=== PATIENT | female | born 1985 | race Caucasian/White ===

== ENCOUNTER 2017-10-24 10:23 | Inpatient (IN) | payer OTHER ==
[~2017-10-24] VITALS: Ht 154.9 cm; Wt 104.3 kg
--- NOTE | 2017-10-24 10:37 | NUR ---
PT AMBULATES TO BED 9
[2017-10-24 10:44] VITALS: BP 116/80
--- NOTE | 2017-10-24 10:51 | NUR ---
PATIENT PRESENTS TO ED WITH c/o umbilical region sharp pain x 2 wks---adds hesitancy, urgency denies bright red blood or black stools ---seen in our er same complaint 10/15/2017 dx constipation pt states she has been having regular bowel movements with NO straining ambulatory with slow guarded gait hx---denies rx---none; DENIES N/V/D; SKIN IS PINK/WARM/DRY; AAOX4 WITH EVEN AND STEADY GAIT; LUNGS CLEAR BL; HR EVEN AND REGULAR; PT DENIES ANY FEVER, CP, SOB, OR COUGH AT THIS TIME; PATIENT STATES PAIN OF 5/10 AT THIS TIME; VSS; PATIENT POSITIONED FOR COMFORT; HOB ELEVATED; BEDRAILS UP X2; BED DOWN. ER MD MADE AWARE OF PT STATUS.
[2017-10-24] MEDS ORDERED: KETOROLAC 30 MG/ML VIAL IVP ONE (13:00)
[2017-10-24] MEDS ORDERED: NACL 0.9% 1,000 ML IV SCH (13:00)
--- NOTE | 2017-10-24 13:28 | NUR ---
medicated as written for pain control---awaits further eval will continue to observe for pain control
--- NOTE | 2017-10-24 13:34 | NUR ---
blood collected at iv start
[2017-10-24 13:45] LABS: EOSINOPHILS # (AUTO) 0.1 K/uL (0-0.4); EOSINOPHILS % (AUTO) 0.4 % (0.0-4.0); HEMOGLOBIN 11.6 g/dL (12.0-16.0)
--- NOTE | 2017-10-24 13:45 | NUR ---
pt to ct via wheelchair
[2017-10-24 13:48] LABS: APPEARANCE,URINE CLOUDY (CLEAR); BILIRUBIN,URINE NEGATIVE (NEGATIVE); BLOOD, URINE 2+ (NEGATIVE); COLOR,URINE YELLOW (YELLOW); LEUKOCYTE ESTERASE ,URINE 2+ (NEGATIVE); NITRITE, URINE NEGATIVE (NEGATIVE); PH,URINE 5.5 (5.0-9.0); UGLUCOSE NEGATIVE (NEGATIVE)
[2017-10-24 13:49] LABS: BASOPHILS # (AUTO) 0.2 K/uL (0.00-0.22); BASOPHILS % (AUTO) 1.1 % (0.0-2.0); HEMATOCRIT 36.4 % (36-48); LYMPHOCYTES # (AUTO) 3.4 K/uL (2.5-16.5); MEAN CORPUSCULAR HEMOGLOBIN 25 pg (27-31); MEAN CORPUSCULAR HGB CONC 32 g/dL (33-37); MEAN CORPUSCULAR VOLUME 79.3 fL (80-94); MONOCYTES # (AUTO) 0.5 K/uL (0.8-1.0); MONOCYTES % (AUTO) 3.1 % (1.7-9.3); NEUTROPHILS # (AUTO) 12.5 K/uL (1.8-7.7); PLATELET COUNT (AUTO) 394 K/uL (140-450); RED BLOOD CELL COUNT(AUTO) 4.59 MIL/uL (4.20-5.40); RED CELL DISTRIBUTION WIDTH 14.8 % (11.6-13.7); WHITE BLOOD COUNT (AUTO) 16.6 K/uL (4.8-10.8)
[2017-10-24 13:54] LABS: ANION GAP 11.6 (8-16); CARBON DIOXIDE 26.3 mmol/L (21-32); CREATININE 0.7 mg/dL (0.6-1.3); POTASSIUM 3.9 mmol/L (3.5-5.1)
[2017-10-24 13:55] LABS: LYMPHOCYTES % (AUTO) 20.2 % (20.5-51.1); NEUTROPHILS % (AUTO) 75.2 % (42.2-75.2)
[2017-10-24 13:59] LABS: ALBUMIN 2.9 g/dL (3.4-5.0); TOTAL BILIRUBIN 0.5 mg/dL (0.0-1.0)
[2017-10-24 14:06] LABS: RBC,URINE 3-10 (FEW) /HPF (0-5)
[2017-10-24 14:07] LABS: URINE AMORPHOUS URATE 1+ /HPF (None Seen)
[2017-10-24] MEDS ORDERED: LEVOFLOXACIN 750 MG/D5W PREMIX 150 ML IV ONE (15:50)
[2017-10-24] MEDS ORDERED: NACL 0.9% 1,000 ML IV ONE (15:50)
[2017-10-24] MEDS ORDERED: metroNIDAZOLE 500 MG/NS PREMIX 100 ML IV ONE (15:50)
[2017-10-24] MEDS ORDERED: ONDANSETRON 4 MG/2 ML VIAL IVP PRN (16:05)
[2017-10-24] MEDS ORDERED: ACETAMINOPHEN 325 MG TAB PO PRN (16:05)
[2017-10-24] MEDS: NACL 0.9% 1,000 ML IV SCH (16:05)
--- NOTE | 2017-10-24 16:45 | NUR ---
Patient admitted to care of DR REEVES. Admited to M/S to room 119A. Belongings list completed. Report to SHANNAN ZAZUETA. Addendum: 10/24/17 at 1653 by MEDARO FLAGYL GIVEN TO TAD GRANADOS TO BE GIVEN AFTER FLAGRADHA
--- NOTE | 2017-10-24 17:00 | NUR ---
PATIENT ADMITTED TO THE UNIT FROM ER. PATIENT AWAKE, ALERT, ORIENTED AND AMBULATORY. PATIENT ON ROOM AIR. NO SOB, NO S/S OF DISTRESS. PATIENT REPORTS OF 5/10 AND PAIN. IV LINE NOTED TO THE RIGHT AC WITH IVF INFUSING WELL. BED LOWERED WITH CALL LIGHT WITHIN REACH. WILL CONTINUE TO MONITOR
[2017-10-24 17:07] VITALS: BP 112/77
[2017-10-24] MEDS: LEVOFLOXACIN 500 MG/D5W PREMIX 100 ML IV SCH (18:26)
--- NOTE | 2017-10-24 19:32 | NUR ---
PATIENT REPORT GIVEN AT BEDSIDE. PATIENT ENDORSED IN STABLE CONDITION
--- NOTE | 2017-10-24 19:32 | NUR ---
RECEIVED REPORT FROM DAY SHIFT NURSE AT BEDSIDE. PT IN STABLE CONDITION. FAMILY IS AT BEDSIDE WITH PT. IV ACCESS IN R AC 20G WITH NS AT 100ML/HR. IV IS PATENT. PT IS A/O X4. SKIN IS INTACT. PT HAS NO COMPLAINTS OF PAIN AT THIS TIME. BED IN LOW POSITION, LOCKED AND SIDE RAILS ARE UP. BOARD UPDATED. WILL CONTINUE TO MONITOR.
[2017-10-24 21:05] VITALS: BP 122/74
[2017-10-24] MEDS: MORPHINE SULFATE 2 MG/ML SYR IVP PRN (21:07)
--- NOTE | 2017-10-24 21:07 | NUR ---
PT C/O OF ABDOMINAL PAIN AND REQUESTED PAIN MEDICINE. VS CHECKED AND MORPHINE GIVEN. PT TOLERATED WELL. WILL CONTINUE TO MONITOR.
--- NOTE | 2017-10-24 22:06 | NUR ---
PT NOW ASLEEP IN BED. NO S/SX OF DISTRESS. WILL CONTINUE TO MONITOR.
[2017-10-24] MEDS: metroNIDAZOLE 500 MG/NS PREMIX 100 ML IV SCH (23:49)
--- NOTE | 2017-10-24 23:49 | NUR ---
ANTIBIOTIC NOW INFUSING. PT IS STABLE. NO C/O OF PAIN. WILL CONTINUE TO MONITOR.
[2017-10-25] VITALS: BP 95/45
[2017-10-25] MEDS: NACL 0.9% 1,000 ML IV SCH ×3 (02:05→22:05)
--- NOTE | 2017-10-25 02:12 | NUR ---
PT REQUESTED ASSISTANCE UP TO BATHROOM. PT TOLERATED WELL. PT BACK IN BED. WILL CONTINUE TO MONITOR.
[2017-10-25] MEDS: MORPHINE SULFATE 2 MG/ML SYR IVP PRN (04:35)
--- NOTE | 2017-10-25 04:35 | NUR ---
PT C/O PAIN AND REQUESTING PAIN MEDICATION. PAIN MEDICATION ADMINISTERED. PT TOLERATED WELL. WILL CONTINUE TO MONITOR.
--- NOTE | 2017-10-25 05:37 | NUR ---
PT ASLEEP IN BED. NO S/SX OF DISTRESS. NEW BAG OF IV FLUIDS STARTED. WILL CONTINUE TO MONITOR PT.
--- NOTE | 2017-10-25 07:13 | NUR ---
ENDORSED PT TO DAY SHIFT NURSE FOR CONTINUITY OF CARE AT BEDSIDE. PT IN STABLE CONDITION.
--- NOTE | 2017-10-25 07:14 | NUR ---
RECEIVED REPORT FROM ELECTRICAL UNIT REBUILDER NURSE CHELITA AT BEDSIDE FOR CONTINUITY OF CARE. PT IS AWAKE AND ORIENTED X4. INTRODUCED SELF AND UPDATED BOARD. NO SOB, NO COUGH, LUNG SOUNDS CLEAR ON AUSCULTATION. O2 SAT 98%. SKIN WARM AND DRY. IV TO R AC 20G INTACT. NS@100ML/HR. PT NPO STATUS. PT STATED SHE HAS ABD DISCOMFORT THAT IS TOLERABLE NOW. DENIES ANY PAIN. FAMILY MEMBER CAME AT BEDSIDE. NO SIGNS OF DISTRESS. PT GOT UP TO USE BATHROOM. WALKED WITH STEADY GAIT. WILL CONTINUE TO MONITOR.
[2017-10-25 08:00] VITALS: BP 98/66
[2017-10-25 08:27] LABS: BASOPHILS # (AUTO) 0.1 K/uL (0.00-0.22); BASOPHILS % (AUTO) 0.6 % (0.0-2.0); EOSINOPHILS # (AUTO) 0.1 K/uL (0-0.4); EOSINOPHILS % (AUTO) 0.7 % (0.0-4.0); HEMATOCRIT 33.2 % (36-48); HEMOGLOBIN 10.5 g/dL (12.0-16.0); LYMPHOCYTES # (AUTO) 2.5 K/uL (2.5-16.5); LYMPHOCYTES % (AUTO) 20.8 % (20.5-51.1); MEAN CORPUSCULAR HEMOGLOBIN 25 pg (27-31); MEAN CORPUSCULAR HGB CONC 32 g/dL (33-37); MEAN CORPUSCULAR VOLUME 80.3 fL (80-94); MONOCYTES # (AUTO) 0.5 K/uL (0.8-1.0); MONOCYTES % (AUTO) 3.9 % (1.7-9.3); NEUTROPHILS # (AUTO) 8.8 K/uL (1.8-7.7); PLATELET COUNT (AUTO) 321 K/uL (140-450); RED BLOOD CELL COUNT(AUTO) 4.14 MIL/uL (4.20-5.40); RED CELL DISTRIBUTION WIDTH 14.6 % (11.6-13.7); WHITE BLOOD COUNT (AUTO) 11.9 K/uL (4.8-10.8)
[2017-10-25] MEDS: metroNIDAZOLE 500 MG/NS PREMIX 100 ML IV SCH ×3 (09:01→23:54)
[2017-10-25] MEDS: ENOXAPARIN 40 MG/0.4 ML SYR SUBQ SCH (09:06)
[2017-10-25 10:09] LABS: ANION GAP 11.4 (8-16); CARBON DIOXIDE 26.5 mmol/L (21-32); CREATININE 0.9 mg/dL (0.6-1.3); POTASSIUM 3.9 mmol/L (3.5-5.1)
[2017-10-25 10:15] LABS: ALBUMIN 2.7 g/dL (3.4-5.0); TOTAL BILIRUBIN 0.4 mg/dL (0.0-1.0)
--- NOTE | 2017-10-25 10:24 | NUR ---
PATIENT HAS BEEN SCREENED AND CATEGORIZED HIGH NUTRITION RISK. PATIENT WILL BE SEEN WITHIN 1-2 DAYS OF ADMISSION. 10/25/17- 10/26/[address]
--- NOTE | 2017-10-25 13:30 | NUR ---
DR. SALMERON CAME IN TO SEE PT CONSULT.
--- NOTE | 2017-10-25 15:07 | NUR ---
FAXED INITIAL REVIEW TO [facility] [phone] PHONE VAMSI [phone]
--- NOTE | 2017-10-25 15:34 | NUR ---
CHECKED ON PT IN ROOM. MOM AT BEDSIDE. PT DENIES PAIN. STARTED ON CLEAR LIQUID DIET. EDUCATED PT ON DIET. VERBALIZED UNDERSTANDING.NO SIGNS OF DISTRESS. PT IS SITTING UP IN BED WATCHING TV. CALL LIGHT WITHIN REACH. BED IN LOW POSITION, WILL CONTINUE TO MONITOR.
[2017-10-25 16:00] VITALS: BP 92/53
[2017-10-25] MEDS: LEVOFLOXACIN 500 MG/D5W PREMIX 100 ML IV SCH (19:01)
--- NOTE | 2017-10-25 19:05 | NUR ---
ENDORSED PT TO PRACTICE PROFESSIONAL NURSE ERNESTINA AT BEDSIDE FOR CONTINUITY OF CARE. PT IN STABLE CONDITION.
--- NOTE | 2017-10-25 19:10 | NUR ---
RECEIVED PT FROM WEST RN PT AAOX4 AMBULATORY NOT DISTRESS NOTED RELATIVES AT BED SIDE IV ON LEFT ARM INFUSING WELL INITIAL ASSESSMENT DONE
[2017-10-25 20:00] VITALS: BP 118/75
--- NOTE | 2017-10-25 22:00 | NUR ---
PT VOIDING WELL AMBULATES TO THE RESTROOM DENIES ANY KPAIN
[2017-10-26] VITALS: BP 105/53
--- NOTE | 2017-10-26 01:00 | NUR ---
PT SLEEPING WELL, NOT DISTRESS NOTED REMAIN STABLE
--- NOTE | 2017-10-26 04:00 | NUR ---
SPONGE BATH GIVEN LINEN CHANGE IV ON RT ARM INFUSING WELL DENIES ANY KLPAIN OR DISCOMFOIRT
[2017-10-26 06:10] LABS: BASOPHILS % (AUTO) 0.6 % (0.0-2.0); EOSINOPHILS # (AUTO) 0.1 K/uL (0-0.4); EOSINOPHILS % (AUTO) 1.6 % (0.0-4.0); HEMATOCRIT 31.4 % (36-48); HEMOGLOBIN 9.9 g/dL (12.0-16.0); LYMPHOCYTES # (AUTO) 2.4 K/uL (2.5-16.5); LYMPHOCYTES % (AUTO) 29.3 % (20.5-51.1); MEAN CORPUSCULAR HEMOGLOBIN 25 pg (27-31); MEAN CORPUSCULAR HGB CONC 31 g/dL (33-37); MEAN CORPUSCULAR VOLUME 80.8 fL (80-94); MONOCYTES # (AUTO) 0.3 K/uL (0.8-1.0); NEUTROPHILS # (AUTO) 5.3 K/uL (1.8-7.7); NEUTROPHILS % (AUTO) 64.5 % (42.2-75.2); PLATELET COUNT (AUTO) 297 K/uL (140-450); RED BLOOD CELL COUNT(AUTO) 3.89 MIL/uL (4.20-5.40); RED CELL DISTRIBUTION WIDTH 14.5 % (11.6-13.7); WHITE BLOOD COUNT (AUTO) 8.2 K/uL (4.8-10.8)
[2017-10-26 06:38] LABS: ALBUMIN 2.4 g/dL (3.4-5.0); ANION GAP 11.8 (8-16); CARBON DIOXIDE 26.8 mmol/L (21-32); CREATININE 0.7 mg/dL (0.6-1.3); POTASSIUM 3.6 mmol/L (3.5-5.1); TOTAL BILIRUBIN 0.2 mg/dL (0.0-1.0)
--- NOTE | 2017-10-26 06:48 | NUR ---
PT RESTING ON BED DENIES ANY PAIN OR DISCOMFORT PT WILL BE ENDORSED TODAY SHIFT NURSE FOR CONTINUITY OF CARE
[2017-10-26] MEDS: NACL 0.9% 1,000 ML IV SCH (06:50)
--- NOTE | 2017-10-26 07:30 | NUR ---
RECEIVED REPORT FROM CANOE INSPECTOR FINAL NURSE ERNESTINA AT BEDSIDE FOR CONTINUITY OF CARE. PT IS AWAKE AND ORIENTED X4. INTRODUCED SELF AND UPDATED BOARD. LUNG SOUNDS CLEAR. O2 SAT 97% ON RA. NO SOB NO COUGH. IV TO L AC 20G INTACT. NS@100ML/HR. SKIN INTACT. BS PRESENT. PT STATED SHE HAD A SMALL BM THIS MORNING. NO COMPLAINTS AT THIS TIME. PT DENIES PAIN. CALL LIGHT WITHIN REACH. BED IN LOW POSITION. WHEELS LOCKED. WILL CONTINUE TO MONITOR.
[2017-10-26 08:00] VITALS: BP 106/64
[2017-10-26] MEDS: metroNIDAZOLE 500 MG/NS PREMIX 100 ML IV SCH ×2 (08:19→16:10)
[2017-10-26] MEDS: POLYETHYLENE GLYCOL 17 GM/PKT PO SCH (08:19)
[2017-10-26] MEDS: ENOXAPARIN 40 MG/0.4 ML SYR SUBQ SCH (08:23)
--- NOTE | 2017-10-26 12:11 | NUR ---
PT EATING LUNCH. VISITORS AT BEDSIDE. PT DENIES ABD PAIN, NAUSEA OR VOMITING. STATED SHE HAS STOMACH DISCOMFORT BUT BETTER THAN BEFORE. NO SIGNS OF DISTRESS. CALL LIGHT WITHIN REACH. WILL CONTINUE TO MONITOR.
--- NOTE | 2017-10-26 12:45 | NUR ---
DR. SALMERON CAME IN AND SAW PT. OK FOR D/C
--- NOTE | 2017-10-26 13:38 | NUR ---
FAXED CONCURRENT REVIEW TO [facility] [phone] PHONE VAMSI [phone]
--- NOTE | 2017-10-26 14:03 | NUR ---
CALLED DR. REEVES AND TOLD HIM DR. SALMERON SAID OK FOR DISCHARGE. SAID TO CONTINUE FULL LIQUID DIET AND WILL D/C TOMORROW.
--- NOTE | 2017-10-26 15:19 | NUR ---
10/26/17 RD INITIAL ASSESSMENT COMPLETED PLEASE REFER TO NUTRITION ASSESSMENT UNDER CARE ACTIVITY FOR ESTIMATED NUTRITIONAL NEEDS. 1. IF/WHEN MEDICALLY APPROPRIATE CONSIDER ADVANCING DIET TO REGULAR TOLERATED. 2. PROVIDED NUTRITION EDUCATION FOR DIVERTICULITIS 3. RD TO FOLLOW-UP 5-7 DAYS, LOW RISK ANNA MARIE BERRIOS, RD
[2017-10-26 16:00] VITALS: BP 106/72
--- NOTE | 2017-10-26 16:30 | NUR ---
PT WAS AMBULATING DOWN THE SPENCE. WALKED WITH STEADY GAIT. ASSISTED BY MOM. NO SIGNS OF DISTRESS. PT DENIES PAIN. WILL CONTINUE TO MONITOR.
[2017-10-26] MEDS: LEVOFLOXACIN 500 MG/D5W PREMIX 100 ML IV SCH (18:25)
--- NOTE | 2017-10-26 19:25 | NUR ---
ENDORSED PT TO HAND MIXER NURSE SAMAN AT BEDSIDE FOR CONTINUITY OF CARE. PT IN STABLE CONDITION.
--- NOTE | 2017-10-26 19:26 | NUR ---
RECEIVED FROM AM RN IN BED AWAKE AND WITH FAMILY MEMBERS VISITING. HX. ABDOMINAL PAIN. PT. CONSTIPATED. HAD BM TODAY PER AM RN. VERBALIZES WELL IN [place]. DENIES ANY PAIN AT THIS TIME. CALL LIGHT WITH IN REACH. CARE PLANS FOR THE NIGHT DISCUSSED WITH THEM. IVF SITE TO RIGHT AC INTACT AND NO S/S OF INFILTRATION.
--- NOTE | 2017-10-26 22:33 | NUR ---
SLEEPING AT THIS TIME. CALL LIGHT WITH IN REACH.
[2017-10-27 00:43] VITALS: BP 108/75
[2017-10-27] MEDS: metroNIDAZOLE 500 MG/NS PREMIX 100 ML IV SCH ×2 (00:52→09:43)
--- NOTE | 2017-10-27 04:38 | NUR ---
SLEEPING WELL THIS SHIFT. ABLE TO USE CALL LIGHT FOR HELP. NO COMPLAINTS DONE. NO NOTED ADVERSE REACTIONS NOTED TO IV ABT BEING ADMINISTERED.
--- NOTE | 2017-10-27 06:26 | NUR ---
SLEEPING WELL. NO COMPLAINTS DONE THIS SHIFT. NO BM THIS SHIFT. ABLE TO VERBALIZE NEEDS WELL. CALL LIGHT WITH IN REACH. NO PAIN COMPLAINTS THIS SHIFT.
--- NOTE | 2017-10-27 07:15 | NUR ---
RECEIVED REPORT FROM SPECTROGRAPHIC ANALYST RN. PATIENT IN STABLE CONDITION, AAO X4. LUNGS CTA IN ALL ALAS. HEART RHYTHM IS REGULAR. ABDOMEN IS ROUND AND SOFT. NO COMPLAINTS OF PAIN OR DISCOMFORT. DENIES NAUSEA. STATES THAT APPETITE HAS NOT BEEN GOOD. SKIN IS INTACT. AMBULATES WITHOUT ASSIST. IV SITE PATENT AND ASYMPTOMATIC, RUNNING IVF PER MD ORDERS. ALL SAFETY MEASURES ARE IN PLACE. WILL CONTINUE TO MONITOR.
[2017-10-27 08:00] VITALS: BP 124/81
[2017-10-27] MEDS: POLYETHYLENE GLYCOL 17 GM/PKT PO SCH (09:43)
--- NOTE | 2017-10-27 09:43 | NUR ---
SCHEDULED MEDICATIONS ADMINISTERED PER MD ORDERS. PATIENT DENIES PAIN AND DISCOMFORT. NO SIGNS OR SYMPTOMS OF DISTRESS. WILL CONTINUE TO MONITOR.
[2017-10-27] MEDS ORDERED: METR500T1 PO (11:28)
[2017-10-27] MEDS ORDERED: LEVO500T2 PO (11:28)
--- NOTE | 2017-10-27 12:30 | NUR ---
DISCHARGE PAPERWORK, INCLUDING INSTRUCTIONS TO FOLLOW UP WITH PRIMARY CARE PHYSICIAN AND GI DOCTOR, GIVEN TO PATIENT AND FAMILY MEMBER AT BEDSIDE. NEW PRESCRIPTION TEACHING GIVEN. PAPER PRESCRIPTIONS UNAVAILABLE AT THIS TIME, DR. REEVES TO CALL INTO PATIENT'S PREFERRED PHARMACY FOR PRESCRIPTIONS. PATIENT IS AWARE. PATIENT AND FAMILY MEMBER VERBALIZED COMPLETE UNDERSTANDING OF ALL DISCHARGE TEACHING.
--- NOTE | 2017-10-27 13:45 | NUR ---
ID BANDS REMOVED. IV CANNULA REMOVED WITH MINIMAL BLOOD LOSS AND LUMEN COMPLETELY INTACT. PATIENT IS GETTING DRESSING. IN STABLE CONDITION. FAMILY MEMBER AT BEDSIDE. PT TO GO HOME WITH FAMILY MEMBER IN PRIVATE VEHICLE. WILL CONTINUE TO MONITOR.
--- NOTE | 2017-10-27 13:52 | NUR ---
WALKED PT AND MOTHER TO THE LOBBY. PT REFUSED WHEELCHAIR. PT HAS ALL PERSONAL BELONGINGS IN HAND. PT IN STABLE CONDITION.
== END 2017-10-27 13:52 | disposition home or self-care (01) | DRG 720 ==
LOC: MED 10:23 → MTU 16:12
PROVIDERS: ADMIT Internal Medicine; ATTEND Internal Medicine
DX: A41.9 Sepsis, unspecified organism (principal); K57.20 Diverticulitis of large intestine with perforation and abscess without bleeding; E44.1 Mild protein-calorie malnutrition; Z68.41 Body mass index [BMI] 40.0-44.9, adult; E83.51 Hypocalcemia; N39.0 Urinary tract infection, site not specified; E66.9 Obesity, unspecified
CPT/HCPCS: 36415; 80053; 81001; 81025; 83690; 85025; 87081; 87086; 96361; 96365; 96375; 99285; J1650; J1885; J1956; J2270; J3490; J7030